=== PATIENT | female | born 1965 | race Caucasian/White ===

== ENCOUNTER 2019-03-31 15:54 | Emergency (ER) | payer OTHER ==
[~2019-03-31] VITALS: Ht 157.5 cm; Wt 39.0 kg
--- NOTE | 2019-03-31 16:10 | NUR ---
PATIWNT BROUGHT BACK FROM TRIAGE WITH CHIEF COMPLAINT OF RIGHT ARM PAIN, HOT FLASHES, FEELING "POOR". PATIENT DENIES CP, SOB, VOMITING. THE PATIENT IS ALERT ORIENTED, WARM AND DRY.
--- NOTE | 2019-03-31 17:23 | NUR ---
STEADY AMBULATION TO BATHROOM
[2019-03-31 17:29] LABS: BASOPHILS # (AUTO) 0.05 x10^3/uL (0-0.1); BASOPHILS % (AUTO) 0 % (0-1); EOSINOPHILS # (AUTO) 0.01 x10^3/uL (0-0.4); EOSINOPHILS % (AUTO) 0 % (1-7); LYMPHOCYTES # (AUTO) 1.67 x10^3/uL (1-3.4); LYMPHOCYTES % (AUTO) 13 % (22-44); MD NO; MEAN CORPUSCULAR HGB CONC 33.4 g/dL (32.4-35.8); MEAN CORPUSCULAR VOLUME 98.9 fL (80-100); MEAN PLATELET VOLUME 8.4 fL (7.4-10.4); MONOCYTES # (AUTO) 0.44 x10^3/uL (0.2-0.8); MONOCYTES % (AUTO) 4 % (2-9); NEUTROPHILS # (AUTO) 10.49 x10^3/uL (1.8-6.8); NEUTROPHILS % (AUTO) 83 % (42-75); PLATELET COUNT 199 x10^3/uL (130-400); RED CELL DISTRIBUTION WIDTH 13.8 % (9.6-15.2)
[2019-03-31 17:38] LABS: ALANINE AMINOTRANSFERASE 27 U/L (12-78); ALBUMIN 3.9 g/dL (3.4-5.0); ANION GAP 8 mmol/L (5-15); CALCIUM 9.7 mg/dL (8.5-10.1); CHLORIDE 104 mmol/L (98-107); CREATININE 1.34 mg/dL (0.55-1.02)
[2019-03-31 17:40] LABS: CULTURE INDICATED? YES; MICROSCOPIC INDICATED
[2019-03-31 17:43] LABS: ALKALINE PHOSPHATASE 86 U/L (45-117); BILIRUBIN,TOTAL 0.7 mg/dL (0.2-1.0); TOTAL PROTEIN 7.8 g/dL (6.4-8.2)
[2019-03-31 18:06] VITALS: BP 146/85
--- NOTE | 2019-03-31 18:49 | NUR ---
Pt report from Geraldine stone. This rn to assume care of pt. Awaiting d/c instructions.
== END 2019-03-31 19:12 | disposition home or self-care (01) ==
LOC: ED 19:00
DX: N30.00 Acute cystitis without hematuria (principal); M25.521 Pain in right elbow; R10.31 Right lower quadrant pain; F17.200 Nicotine dependence, unspecified, uncomplicated
CPT/HCPCS: 36415; 74021; 80053; 81001; 83690; 85025; 87077; 87086; 87186; 99284

== ENCOUNTER 2019-10-05 20:29 | Emergency (ER) | payer SELFPAY ==
[~2019-10-05] VITALS: Ht 157.5 cm; Wt 49.7 kg
--- NOTE | 2019-10-05 20:44 | NUR ---
PT NOT IN LOBBY
--- NOTE | 2019-10-05 20:58 | NUR ---
PT REPORTS HITTING HEAD ON BUNK BED YESTERDAY, REPORTS [place]AV[place]ETA WITH LIGHT SENSITIVITY, N, DENIES VOMITING. MONITORING APPLIED, CALL LIGHT WITHIN REACH, ALL SAFETY MEASURES IN PLACE.
[2019-10-05] MEDS ORDERED: SODIUM CHLORIDE 0.9% 1,000ML IVBOLUS ONE (21:30)
[2019-10-05] MEDS ORDERED: KETOROLAC 30 MG/1 ML IVPush ONE (21:30)
[2019-10-05] MEDS ORDERED: KETOROLAC 30 MG/1 ML ONE (21:30)
[2019-10-05] MEDS ORDERED: ACETAMINOPHEN 500 MG TABLET ONE (21:30)
[2019-10-05] MEDS ORDERED: ONDANSETRON 2MG/ML, 2ML ONE (21:30)
[2019-10-05] MEDS ORDERED: ONDANSETRON 2MG/ML, 2ML IVPush ONE (21:30)
[2019-10-05] MEDS ORDERED: ACETAMINOPHEN 325 MG TABLET PO ONE (21:30)
[2019-10-05 21:44] LABS: ALBUMIN 3.5 g/dL (3.4-5.0); ANION GAP 7 mmol/L (5-15); CALCIUM 8.7 mg/dL (8.5-10.1); CHLORIDE 105 mmol/L (98-107); CREATININE 1.17 mg/dL (0.55-1.02)
[2019-10-05 21:53] LABS: BASOPHILS % (AUTO) 0 % (0-1); EOSINOPHILS # (AUTO) 0.01 x10^3/uL (0-0.4); EOSINOPHILS % (AUTO) 0 % (1-7); LYMPHOCYTES # (AUTO) 0.78 x10^3/uL (1-3.4); LYMPHOCYTES % (AUTO) 13 % (22-44); MD SCAN; MEAN CORPUSCULAR HEMOGLOBIN 32.2 pg (27.0-34.8); MEAN CORPUSCULAR HGB CONC 33.7 g/dL (32.4-35.8); MEAN CORPUSCULAR VOLUME 95.5 fL (80-100); MEAN PLATELET VOLUME 8.9 fL (7.4-10.4); MONOCYTES # (AUTO) 0.07 x10^3/uL (0.2-0.8); MONOCYTES % (AUTO) 1 % (2-9); NEUTROPHILS # (AUTO) 5.37 x10^3/uL (1.8-6.8); NEUTROPHILS % (AUTO) 86 % (42-75); PLATELET COUNT 63 x10^3/uL (130-400); RED BLOOD COUNT 4.62 x10^6/uL (3.82-5.3); RED CELL DISTRIBUTION WIDTH 13.7 % (9.6-15.2)
[2019-10-05 22:24] VITALS: BP 102/40
[2019-10-05 22:42] LABS: MICROSCOPIC NOT IND
== END 2019-10-06 00:02 | disposition home or self-care (01) ==
LOC: ED 21:30
DX: R51 Headache (principal); R50.9 Fever, unspecified; Z20.828 Contact with and (suspected) exposure to other viral communicable diseases; R11.2 Nausea with vomiting, unspecified; F17.210 Nicotine dependence, cigarettes, uncomplicated; Z90.89 Acquired absence of other organs
CPT/HCPCS: 36415; 71045; 80048; 81003; 82040; 85025; 96361; 96374; 96375; 99284; 99406; J1885; J2405; J7030; U0001